=== PATIENT | male | born 1960 | race Caucasian/White ===

== ENCOUNTER 2021-04-27 08:41 | Emergency (ER) | payer OTHER ==
[2021-04-27] MEDS ORDERED: Ondansetron 4 MG/2 ML SDV IVPUSH ONE (09:17)
[2021-04-27] MEDS ORDERED: Sodium Chloride 0.9% 10 ML Syringe FLUSH PRN (09:17)
[2021-04-27] MEDS ORDERED: Sodium Chloride 0.9% 1,000 ML IV SCH (09:30)
[2021-04-27 11:48] VITALS: BP 145/80; PULSE 58
== END 2021-04-27 11:30 | disposition home or self-care (01) ==
LOC: JD.ED 08:41
DX: R11.2 Nausea with vomiting, unspecified (principal); R19.7 Diarrhea, unspecified; Z88.5 Allergy status to narcotic agent
CPT/HCPCS: 36415; 71045; 80053; 85025; 86140; 87635; 96374; 99284; J2405; J7030; U0002

== ENCOUNTER 2024-07-26 11:35 | Emergency (ER) | payer OTHER ==
[2024-07-26] MEDS: Sodium Chloride 0.9% 1,000 ML IV SCH (12:50)
[2024-07-26] MEDS: Sodium Chloride 0.9% 10 ML Syringe FLUSH PRN (12:50)
[2024-07-26 13:05] LABS: BASOPHILS PERCENT AUTO 0.5 % (0.0-1.0); EOSINOPHILS PERCENT AUTO 0.3 % (0.0-6.0); HEMATOCRIT 48.2 % (42.0-52.0); HEMOGLOBIN 16.4 gm/dl (14.0-18.0); IMMATURE GRAN ABSOLUTE AUTO 0.01 K/mm3 (0.00-0.05); IMMATURE GRAN PERCENT AUTO 0.1 % (0.0-0.4); LYMPHOCYTES ABSOLUTE AUTO 0.9 K/mm3 (1.0-4.8); LYMPHOCYTES PERCENT AUTO 11.9 % (24.0-44.0); MEAN CORPUSCULAR HEMOGLOBIN 31.5 pg (28.0-32.0); MEAN CORPUSCULAR VOLUME 92.5 fl (83.0-99.0); MEAN PLATELET VOLUME 8.1 fl (9.4-12.4); MONOCYTES ABSOLUTE AUTO 0.9 K/mm3 (0.0-0.8); MONOCYTES PERCENT AUTO 11.1 % (0.0-8.0); NEUTROPHILS ABSOLUTE AUTO 5.9 K/mm3 (1.8-7.7); NEUTROPHILS PERCENT AUTO 76.1 % (41.0-71.0); PLATELET COUNT,PLT 242 K/mm3 (150-400); RED BLOOD CELL COUNT 5.21 M/mm3 (4.52-5.90); WHITE BLOOD CELL COUNT,WBC 7.81 K/mm3 (3.9-11.3)
[2024-07-26 13:10] LABS: ALBUMIN 3.8 g/dl (3.4-5.0); ANION GAP 14.9 (5-15); BILIRUBIN TOTAL 1.1 mg/dL (0.2-1.0); BUN/CREATININE RATIO 12.5 (14-18); CREATININE 1.2 mg/dL (0.7-1.3); EST CRCL DRUG DOSING (CG) 61.37 mL/min; POTASSIUM,K 3.9 mEq/L (3.5-5.1); PROTEIN TOTAL,TP 7.7 g/dl (6.4-8.2)
[2024-07-26 15:49] LABS: CORONAVIRUS COVID-19 NAA NEGATIVE (NEGATIVE); INFLUENZA A NAA NEGATIVE (NEGATIVE); RESPIRATORY SYNCYTIAL VIR NAA NEGATIVE (NEGATIVE)
[2024-07-26 17:08] VITALS: BP 133/82; PULSE 78
== END 2024-07-26 15:47 ==
LOC: JD.ED 11:35
DX: I45.9 Conduction disorder, unspecified (principal); I10 Essential (primary) hypertension; Z86.16 Personal history of COVID-19; Z90.49 Acquired absence of other specified parts of digestive tract; Z87.891 Personal history of nicotine dependence; Z88.5 Allergy status to narcotic agent; Z79.899 Other long term (current) drug therapy
CPT/HCPCS: 0241U; 36415; 71045; 80053; 85025; 93005; 96360; 96361; 99285; J7030; 93010